=== PATIENT | female | born 1995 | race Caucasian/White ===

== ENCOUNTER 2025-01-27 22:26 | Emergency (ER) | payer OTHER, SELFPAY ==
[2025-01-27 22:27] VITALS: BP 123/86; PULSE 120; RESP 16; TEMP 36.7; O2SAT 100; BMI 28.6
[2025-01-27 22:31] VITALS: BP 125/85; PULSE 110; O2SAT 100
--- NOTE | 2025-01-27 23:28 | CTR_ITS ---
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 Please include mouth TECHNIQUE: Imaging protocol: Computed tomography of the neck with contrast. Radiation optimization: All CT scans at this facility use at least one of these dose optimization techniques: automated exposure control; mA and/or kV adjustment per patient size (includes targeted exams where dose is matched to clinical indication); or iterative reconstruction. Contrast material: OMNI 350; Contrast volume: 80 ml; Contrast route: INTRAVENOUS (IV); COMPARISON: CT head wo con* [id number] 03/27/2018 1:18 AM RADIATION DOSE METRICS: Total DLP (mGy-cm): 367.5 FINDINGS: Salivary glands: Approximately 14 x 6 x 8 mm calcified left sublingual sialolith with dilated salivary duct and left sublingual and submandibular sialadenitis. Grossly normal parotid glands. Pharynx: Unremarkable. No significant tonsillar enlargement. Larynx: No acute abnormality. Normal epiglottis. Thyroid: No acute abnormality. No enlarged or calcified nodules. Trachea: Normal. Lungs: No significant or acute abnormality of the visualized lung apices. Lymph nodes: Small nonspecific bilateral cervical lymph nodes. Bones/joints: Previous craniotomies and cranioplasty. Right craniofacial, left temporal and posterior left mandibular metallic hardware in place. Soft tissues: No significant soft tissue abnormalities. CT/CT neck w con* [id number] IMPRESSION: Approximately 14 x 6 x 8 mm calcified left sublingual sialolith with dilated salivary duct and left sublingual and submandibular sialadenitis.
[2025-01-27 23:52] LABS: Rapid Strep A Test Negative (Negative)
--- NOTE | 2025-01-28 | W.ED.DENTAL ---
Documented by User: SHALONDA Singh 01/28/25 02:14 HPI - Dental/Oral General: Chief complaint: Upper Respiratory Infection Stated complaint: Sore Throat Time Seen by Provider: 01/27/25 23:01 History of Present Illness: Patient is a pleasant 29-year-old female with history of previous mandible fracture, with plate along the left side of face, that reports to ED with left neck swelling and sore throat. Patient thought she had another salivary stone. She has had these in the past. Her swelling and pain is posterior pharynx, and under her tongue in the front. She is able to eat. She denies any fevers. No changes in her face size, according to patient, since her face is unequal from previous mandibular surgery Duration: worsening (2 days) Severity: moderate Related Data Home Medications ?Medication ?Instructions ?Recorded ?Confirmed propranolol 20 mg tablet 10 mg PO BID 03/24/22 03/24/22 Previous Rx's ?Medication ?Instructions ?Recorded amoxicillin 875 mg-potassium 1 tab PO BID 10 days #20 tabs 01/28/25 clavulanate 125 mg tablet oxycodone-acetaminophen 5 mg-325 1 tab PO TID PRN pain #14 tabs 01/28/25 mg tablet (Percocet) Allergies Allergy/AdvReac Type Severity Reaction Status Date / Time No Known Allergies Allergy Unverified 03/24/22 15:43 Review of Systems General: Reports: 10 or more systems reviewed and unremarkable except in HPI and below Eyes: Denies: change in vision or blurry vision ENMT: Reports: throat pain, mouth pain and swelling of lips/tongue Card: Denies: chest pain or palpitations Resp: Denies: dyspnea or productive cough GI: Denies: abdominal pain, nausea or vomiting : Denies: flank pain or difficulty voiding Musc: Reports: neck pain; Denies: back pain Skin/Breast: Reports: skin swelling; Denies: rash, pruritus or erythema Neuro: Denies: headache(s) or sensory changes Psych: Denies: anxiety or depression Physical Exam HENMT: COMMON NORMALS: hearing grossly normal bilaterally, EAC's normal, TM's normal bilaterally and moist oral mucous membranes; not normocephalic (Unequal facial symmetry with left> right) and oropharynx not normal HEAD & SCALP: not normocephalic (Unequal facial symmetry with left> right) EXTERNAL AUDITORY CANAL: EAC's normal TYMPANIC MEMBRANE: TM's normal bilaterally MOUTH IMAGES:  1. Underneath tongue base is an area with white small amount of pustulant expressing with red around this area, and induration TEETH & GINGIVA: no caries and no poor dentition THROAT: posterior oropharynx abnormal exudates (left only) Neck/C-Spine: COMMON NORMALS: no JVD; negative for no lymphadenopathy GENERAL: Yes trachea midline, Yes anterior neck swelling and Yes lymphadenopathy Lymphadenopathy location: anterior cervical (upper) CERVICAL SPINE: Yes cervical ROM normal Chest: COMMONS NORMALS: normal inspection of the chest Resp: COMMON NORMALS: normal respiratory effort and clear to auscultation bilaterally EFFORT & INSPECTION: Yes able to speak in complete sentences AUSCULTATION: clear to auscultation bilaterally Cardio: COMMON NORMALS: no JVD, S1 normal heart sound present, S2 normal heart sound present, No clicks present (Cardio) and No murmurs present (Cardio) HEART SOUNDS: S1 normal heart sound present and S2 normal heart sound present GI: COMMON NORMALS: Normal to inspection, nondistended, normoactive bowel sounds present : COMMON NORMALS: Yes no CVA tenderness BLADDER/KIDNEY EXAM: Yes no CVA tenderness Back/Pelvis: COMMON NORMALS: no CVA tenderness Course Consultations: Consultation #1: dr. jim, ENT, he d/n drain abscesses Consultation #2: [facility] transfer center. ent will review for er-er Vital Signs: Vital signs: Vital Signs Temperature 98.0 F 01/27/25 22:27 Pulse Rate 110 H 01/27/25 22:31 Respiratory Rate 16 01/27/25 22:27 Blood Pressure 125/85 01/27/25 22:31 Pulse Oximetry 100 01/27/25 22:31 Oxygen Delivery Me thod Room Air 01/27/25 22:31 MDM - Dental/Oral Medical Decision Making Patient is a pleasant 29-year-old female with previous mandible fracture with plate on left lower jaw, and normal asymmetry. Over the last 2 days she has had increasing swelling, sore throat, and thought she had a salivary gland. This appears to be associated with submandibular abscess. I do note white milky expression underneath her tongue and on the left side where this plate is located. Her upper left cervical chain also is significant for lymphadenopathy. Will obtain CT of the neck to include jaw, prior to further decision making. Will obtain routine laboratory data and assess renal function prior to contrast. Urine is negative. Will proceed after renal function is reported. Suspect patient will need ongoing antibiotics, and or ENT. This is more complicated given the foreign body as well. CT notes 14 x 6 x 8 mm stone blocking the duct which is causing dilation and inflammatory changes. I suspect this is secondary to abscess as well since it is red, hot, swollen, and association of WBC of 18.8. Images of CT will be loaded for ENT to review. I did attempt to call Dr. Jim that was on-call for ENT however he does not drain abscesses. telecommunications clerk is getting a hold of [email or web address]. I did discuss with transfer center for [email or web address] for patient to drive up there and have this area drained. In the interim, she will receive IV antibiotics of vancomycin, cefepime, with IV fluids. All the patient's questions were answered to her satisfaction. Differential Diagnosis Likely gingival abscess and dental abscess Lab Data 01/28/25 00:01 01/28/25 00:[address] 01/27/25 23:28 IMPRESSION: Approximately 14 x 6 x 8 mm calcified left sublingual sialolith with dilated salivary duct and left sublingual and submandibular sialadenitis. ADDENDUM: 01/28/25 0143 THIS REPORT CONTAINS FINDINGS THAT MAY BE CRITICAL TO PATIENT CARE. The findings were verbally communicated via telephone conference with SHALONDA Harvey at 1:38 AM CDT on 01/28/2025. The findings were acknowledged and understood. Laboratory Results WBC 18.84 10^3/uL (3.29-11.43) H 01/28/25 00:01 RBC 4.49 10^6/uL (3.85-5.65) 01/28/25 00:01 Hgb 14.20 g/dL (11.27-16.99) 01/28/25 00:01 Hct 42.4 % (36-47) 01/28/25 00:01 MCV 94.4 fl (85-98) 01/28/25 00:01 MCH 31.6 pg (27-33) 01/28/25 00:01 MCHC 33.5 g/dL (30-55) 01/28/25 00:01 RDW 13.8 % (12.1-15.1) 01/28/25 00:01 Plt Count 277 10^3/cmm (157-399) 01/28/25 00:01 MPV 12.7 fL (7.4-10.4) H 01/28/25 00:01 Neut % (Auto) 71.3 % 01/28/25 00:01 Lymph % (Auto) 19.2 % 01/28/25 00:01 Wagoner % (Auto) 7.9 % 01/28/25 00:01 Eos % (Auto) 0.7 % 01/28/25 00:01 Baso % (Auto) 0.6 % 01/28/25 00:01 Neut # (Auto) 13.44 10^3/uL (1.8-7.7) H 01/28/25 00:01 Lymph # (Auto) 3.6 10^3/uL (0.8-4.8) 01/28/25 00:01 Wagoner # (Auto) 1.5 10^3/uL (0.2-0.9) H 01/28/25 00:01 Eos # (Auto) 0.1 10^3/uL (0.0-0.8) 01/28/25 00:01 Baso # (Auto) 0.1 10^3/uL (0.0-0.1) 01/28/25 00:01 Nucleated RBC % (auto) 0 % 01/28/25 00: Nucleated RBCs # 0.0 /100WBC 01/28/25 00:01 Sodium 143 mmol/L (136-145) 01/28/25 00:01 Potassium 3.7 mmol/L (3.5-5.1) 01/28/25 00:01 Chloride 104 mmol/L (98-107) 01/28/25 00:01 Carbon Dioxide 26 mmol/L (22-29) 01/28/25 00:01 Anion Gap 16.7 (5-19) 01/28/25 00:01 BUN 6 mg/dL (6-20) 01/28/25 00:01 Creatinine 0.6 mg/dL (0.5-0.9) 01/28/25 00:01 GFR Calculation 116.6 mL/min (90-130) 01/28/25 00:01 Glucose 95 mg/dL (65-115) 01/28/25 00:01 Calculated Osmolality 293 mOsm/kg (285-295) 01/28/25 00:01 Lactic Acid 1.4 mmol/L (0.5-2.2) 01/28/25 00:01 Calcium 9.3 mg/dL (8.5-10.5) 01/28/25 00:01 Total Bilirubin 0.2 mg/dL (0.15-1.2) 01/28/25 00:01 AST 20 U/L (0-32) 01/28/25 00:01 ALT 14 U/L (0-33) 01/28/25 00:01 Alkaline Phosphatase 73 U/L (35-105) 01/28/25 00:01 C-Reactive Protein 14.8 mg/L (0.0-4.9) H 01/28/25 00:01 Total Protein 7.2 g/dL (6.6-8.7) 01/28/25 00:01 Albumin 4.1 g/dL (3.5-5.2) 01/28/25 00:01 Globulin 3.1 g/dL (1.3-4.6) 01/28/25 00:01 HCG, Qual Negative (Negative) 01/27/25 23:55 Group A Strep Rapid Negative (Negative) 01/27/25 22:45 Other Data bactrim ds given to patient Discharge Plan Discharge Patient Disposition: Home Clinical Impression: Acute sialoadenitis, Salivary duct calculus Condition: Stable Prescriptions: New amoxicillin-pot clavulanate 875-125 mg tablet 1 tab PO BID 10 Days Qty: 20 0RF oxycodone-acetaminophen [Percocet] 5-325 mg tablet 1 tab PO TID PRN (Reason: pain) Qty: 14 0RF No Action propranolol 20 mg tablet 10 mg PO BID Discharge Orders: Discharge ED (Routine); Ordered 01/28/25 Ordered By: Terry Pastor Referrals: Daniele Uriarte MD [Physician, Ear, Nose, Throat] Shin,LINETTE Falcon [Primary Care Provider, Nurse Practitioner] Discharge Diet: Soft Mechanical and Full LIquid Discharge Activity: Resume usual activity Patient Instructions: Sialoadenitis (ED) Activity Restrictions/Additional Instructions: Please continue to suck on sour candy and call Dr. Uriarte's office to be seen as soon as feasible for definitive management of your salivary duct stone and subsequent sialadenitis Stand Alone Forms: Work/School Release Print Language: Angolan Coding Level of Care Code ED Sheet Metal Pattern Cutter for Chg Fwd Documented by User: Terry Pastor MD 01/28/25 03:22 HPI - Dental/Oral General: Chief complaint: Upper Respiratory Infection Stated complaint: Sore Throat Time Seen by Provider: 01/27/25 23:01 Related Data Home Medications ?Medication ?Instructions ?Recorded ?Confirmed propranolol 20 mg tablet 10 mg PO BID 03/24/22 03/24/22 Previous Rx's ?Medication ?Instructions ?Recorded amoxicillin 875 mg-potassium 1 tab PO BID 10 days #20 tabs 01/28/25 clavulanate 125 mg tablet oxycodone-acetaminophen 5 mg-325 1 tab PO TID PRN pain #14 tabs 01/28/25 mg tablet (Percocet) Allergies Allergy/AdvReac Type Severity Reaction Status Date / Time No Known Allergies Allergy Unverified 03/24/22 15:43 Physical Exam HENMT: MOUTH IMAGES:  1. Underneath tongue base is an area with white small amount of pustulant expressing with red around this area, and induration Course Vital Signs: Vital signs: Vital Signs Temperature 98.0 F 01/27/25 22:27 Pulse Rate 110 H 01/27/25 22:31 Respiratory Rate 16 01/27/25 22:27 Blood Pressure 125/85 01/27/25 22:31 Pulse Oximetry 100 01/27/25 22:31 Oxygen Delivery Me thod Room Air 01/27/25 22:31 MDM - Dental/Oral Medical Decision Making Patient is a pleasant 29-year-old female with previous mandible fracture with plate on left lower jaw, and normal asymmetry. Over the last 2 days she has had increasing swelling, sore throat, and thought she had a salivary gland. This appears to be associated with submandibular abscess. I do note white milky expression underneath her tongue and on the left side where this plate is located. Her upper left cervical chain also is significant for lymphadenopathy. Will obtain CT of the neck to include jaw, prior to further decision making. Will obtain routine laboratory data and assess renal function prior to contrast. Urine is negative. Will proceed after renal function is reported. Suspect patient will need ongoing antibiotics, and or ENT. This is more complicated given the foreign body as well. CT notes 14 x 6 x 8 mm stone blocking the duct which is causing dilation and inflammatory changes. I suspect this is secondary to abscess as well since it is red, hot, swollen, and association of WBC of 18.8. Images of CT will be loaded for ENT to review. I did attempt to call Dr. Jim that was on-call for ENT however he does not drain abscesses. telecommunications clerk is getting a hold of [email or web address]. [facility] to drive up there and have this area drained. In the interim, she will receive IV antibiotics of vancomycin, cefepime, with IV fluids. All the patient's questions were answered to her satisfaction. Post signout progress by Dr. Pastor: Patient signed out to me at shift change pending conversation with ENT specialist from [facility]. I spoke with the patient and she relates that she has a history of salivary stones which have previously passed more quickly spontaneously with conservative measures. She does have a 19,000 white blood cell count and CT scan does show salivary duct stone with ductal dilation proximal. While there is concern this could progress to abscess, at this time I do not appreciate abscess on exam. I spoke with both Dr. Uriarte ENT here in [place] and Alethea Wright ENT CREW PERSON at [facility] and all parties are in agreement that is safe for her to continue oral Augmentin and see local ENT tomorrow in clinic for definitive management. Patient is agreeable with this plan and will be discharged as such. She knows that she is always welcome back in the emergency department if symptoms get worse before outpatient follow-up can be obtained. Lab Data 01/28/25 00:01 01/28/25 00:[address] 01/27/25 23:28 IMPRESSION: Approximately 14 x 6 x 8 mm calcified left sublingual sialolith with dilated salivary duct and left sublingual and submandibular sialadenitis. ADDENDUM: 01/28/25 0143 THIS REPORT CONTAINS FINDINGS THAT MAY BE CRITICAL TO PATIENT CARE. The findings were verbally communicated via telephone conference with SHALONDA Harvey at 1:38 AM CDT on 01/28/2025. The findings were acknowledged and understood. Laboratory Results WBC 18.84 10^3/uL (3.29-11.43) H 01/28/25 00:01 RBC 4.49 10^6/uL (3.85-5.65) 01/28/25 00:01 Hgb 14.20 g/dL (11.27-16.99) 01/28/25 00:01 Hct 42.4 % (36-47) 01/28/25 00:01 MCV 94.4 fl (85-98) 01/28/25 00:01 MCH 31.6 pg (27-33) 01/28/25 00:01 MCHC 33.5 g/dL (30-55) 01/28/25 00:01 RDW 13.8 % (12.1-15.1) 01/28/25 00:01 Plt Count 277 10^3/cmm (157-399) 01/28/25 00:01 MPV 12.7 fL (7.4-10.4) H 01/28/25 00:01 Neut % (Auto) 71.3 % 01/28/25 00:01 Lymph % (Auto) 19.2 % 01/28/25 00:01 Wagoner % (Auto) 7.9 % 01/28/25 00:01 Eos % (Auto) 0.7 % 01/28/25 00:01 Baso % (Auto) 0.6 % 01/28/25 00:01 Neut # (Auto) 13.44 10^3/uL (1.8-7.7) H 01/28/25 00:01 Lymph # (Auto) 3.6 10^3/uL (0.8-4.8) 01/28/25 00:01 Wagoner # (Auto) 1.5 10^3/uL (0.2-0.9) H 01/28/25 00:01 Eos # (Auto) 0.1 10^3/uL (0.0-0.8) 01/28/25 00:01 Baso # (Auto) 0.1 10^3/uL (0.0-0.1) 01/28/25 00:01 Nucleated RBC % (auto) 0 % 01/28/25 00:01 Nucleated RBCs # 0.0 /100WBC 01/28/25 00:01 Sodium 143 mmol/L (136-145) 01/28/25 00:01 Potassium 3.7 mmol/L (3.5-5.1) 01/28/25 00:01 Chloride 104 mmol/L (98-107) 01/28/25 00:01 Carbon Dioxide 26 mmol/L (22-29) 01/28/25 00:01 Anion Gap 16.7 (5-19) 01/28/25 00:01 BUN 6 mg/dL (6-20) 01/28/25 00:01 Creatinine 0.6 mg/dL (0.5-0.9) 01/28/25 00: GFR Calculation 116.6 mL/min (90-130) 01/28/25 00:01 Glucose 95 mg/dL (65-115) 01/28/25 00:01 Calculated Osmolality 293 mOsm/kg (285-295) 01/28/25 00:01 Lactic Acid 1.4 mmol/L (0.5-2.2) 01/28/25 00:01 Calcium 9.3 mg/dL (8.5-10.5) 01/28/25 00:01 Total Bilirubin 0.2 mg/dL (0.15-1.2) 01/28/25 00:01 AST 20 U/L (0-32) 01/28/25 00:01 ALT 14 U/L (0-33) 01/28/25 00:01 Alkaline Phosphatase 73 U/L (35-105) 01/28/25 00:01 C-Reactive Protein 14.8 mg/L (0.0-4.9) H 01/28/25 00:01 Total Protein 7.2 g/dL (6.6-8.7) 01/28/25 00:01 Albumin 4.1 g/dL (3.5-5.2) 01/28/25 00:01 Globulin 3.1 g/dL (1.3-4.6) 01/28/25 00:01 HCG, Qual Negative (Negative) 01/27/25 23:55 Group A Strep Rapid Negative (Negative) 01/27/25 22:45 All radiology interpretation(s) finalized by discharge Discharge Plan Discharge Patient Disposition: Home Clinical Impression: Acute sialoadenitis, Salivary duct calculus Condition: Stable Prescriptions: New amoxicillin-pot clavulanate 875-125 mg tablet 1 tab PO BID 10 Days Qty: 20 0RF oxycodone-acetaminophen [Percocet] 5-325 mg tablet 1 tab PO TID PRN (Reason: pain) Qty: 14 0RF No Action propranolol 20 mg tablet 10 mg PO BID Discharge Orders: Discharge ED (Routine); Ordered 01/28/25 Ordered By: Terry Pastor Referrals: Daniele Uriarte MD [Physician, Ear, Nose, Throat] Shin,LINETTE Falcon [Primary Care Provider, Nurse Practitioner] Discharge Diet: Soft Mechanical and Full LIquid Discharge Activity: Resume usual activity Patient Instructions: Sialoadenitis (ED) Activity Restrictions/Additional Instructions: Please continue to suck on sour candy and call Dr. Uriarte's office to be seen as soon as feasible for definitive management of your salivary duct stone and subsequent sialadenitis Stand Alone Forms: Work/School Release Print Language: Angolan Coding Level of Care Code ED Sheet Metal Pattern Cutter for Adali Loepz
[2025-01-28 00:07] LABS: HCG Qualitative Urine. Negative (Negative)
[2025-01-28 00:13] LABS: Basophils # 0.1 10^3/uL (0.0-0.1); Basophils % 0.6 %; Eosinophils # 0.1 10^3/uL (0.0-0.8); Eosinophils % 0.7 %; Hematocrit 42.4 % (36-47); Lymphocytes # 3.6 10^3/uL (0.8-4.8); Lymphocytes % 19.2 %; Mean Corpuscular HGB Conc 33.5 g/dL (30-55); Mean Corpuscular Hemoglobin 31.6 pg (27-33); Mean Corpuscular Volume 94.4 fl (85-98); Mean Platelet Volume 12.7 fL (7.4-10.4); Monocytes # 1.5 10^3/uL (0.2-0.9); Monocytes % 7.9 %; Neutrophils # 13.44 10^3/uL (1.8-7.7); Neutrophils % 71.3 %; Nucleated Red Blood Cells % 0 %; Platelet Count 277 10^3/cmm (157-399); Red Blood Count 4.49 10^6/uL (3.85-5.65); Red Cell Distribution Width 13.8 % (12.1-15.1); White Blood Count 18.84 10^3/uL (3.29-11.43)
[2025-01-28 00:31] VITALS: PULSE 110; O2SAT 98
[2025-01-28] MEDS: iohexol 350 mg/mL 500 mL Btl (per mL) IV (00:38)
[2025-01-28 00:40] LABS: Slide Review Slide Review Perform
[2025-01-28 01:11] LABS: Alanine Aminotransferase 14 U/L (0-33); Albumin Level 4.1 g/dL (3.5-5.2); Alkaline Phosphatase 73 U/L (35-105); Anion Gap 16.7 (5-19); Aspartate Amino Transferase 20 U/L (0-32); Blood Urea Nitrogen 6 mg/dL (6-20); Calcium 9.3 mg/dL (8.5-10.5); Carbon Dioxide 26 mmol/L (22-29); Chloride 104 mmol/L (98-107); Creatinine Clr Calc Pharmacy 140.2772; Globulin 3.1 g/dL (1.3-4.6); Glomerular Filtration Rate 116.6 mL/min (90-130); Glucose 95 mg/dL (65-115); Osmolality Calculated 293 mOsm/kg (285-295); Potassium 3.7 mmol/L (3.5-5.1); Sodium 143 mmol/L (136-145); Total Bilirubin 0.2 mg/dL (0.15-1.2); Total Protein 7.2 g/dL (6.6-8.7)
[2025-01-28 01:16] LABS: C Reactive Protein 14.8 mg/L (0.0-4.9); Lactic Sepsis W/Reflex 1.4 mmol/L (0.5-2.2)
[2025-01-28] MEDS: cefepime 2,000 mg SDV 2000 MG IVP (01:51)
[2025-01-28 02:00] VITALS: BP 128/88; PULSE 95; RESP 16; O2SAT 94
[2025-01-28] MEDS: vancomycin 1,250 MG/250 ML PIGGYBACK 166.67 MG IV (02:08)
[2025-01-28] MEDS: sodium chloride 0.9% 1,000 ML 999 ML IV (02:08)
[2025-01-28 03:58] VITALS: BP 125/97; PULSE 95; O2SAT 98
== END 2025-01-28 03:59 | disposition home or self-care (01) ==
PROVIDERS: Emergency Provider Physician Assistant; PCP Nurse Practitioner Family
DX: K11.21 Acute sialoadenitis (principal); K11.5 Sialolithiasis
CPT/HCPCS: 36415; 70491; 80053; 81025; 83605; 85025; 86140; 87040; 87081; 87880; 96361; 96374; 96375; 99285; J0692; J3370; J7030